=== PATIENT | female | born 1945 | race Caucasian/White ===

== ENCOUNTER 2022-12-28 19:45 | Inpatient (IN) | payer OTHER ==
[~2022-12-28] VITALS: Ht 154.9 cm; Wt 73.5 kg
[2022-12-28 19:50] VITALS: BP_SYST 137
--- NOTE | 2022-12-28 19:50 | NUR ---
Patient triaged and placed in [facility] . VSS and patient appears in no acute distress at this time. Accompanied by EMS, awaiting available bed, and MD notified of need for MSE.
--- NOTE | 2022-12-28 20:21 | NUR ---
ER Dr.Dela Estevez examining patient.
[2022-12-28] MEDS ORDERED: DEXTROSE 50% JECT 50 ML DISP.SYRIN ONE (20:37)
[2022-12-28] MEDS ORDERED: DEXTROSE 50% JECT 50 ML DISP.SYRIN IVP ONE ×3 (20:45→23:00)
[2022-12-28 20:46] LABS: BASOPHILS # (AUTO) 0.1 K/uL (0.0-0.2); BASOPHILS % (AUTO) 0.9 % (0.0-2.0); EOSINOPHILS # (AUTO) 0.2 K/uL (0.0-0.4); EOSINOPHILS % (AUTO) 2.7 % (0.0-4.0); HEMATOCRIT 36.3 % (36-48); HEMOGLOBIN 11.9 g/dL (12.0-16.0); LYMPHOCYTES # (AUTO) 1.4 K/uL (1.0-5.5); LYMPHOCYTES % (AUTO) 16.9 % (20.5-51.5); MEAN CORPUSCULAR HEMOGLOBIN 29 pg (27-31); MEAN CORPUSCULAR HGB CONC 33 % (32-36); MEAN CORPUSCULAR VOLUME 90 fL (79.0-98.0); MONOCYTES # (AUTO) 0.6 K/uL (0.0-1.0); MONOCYTES % (AUTO) 7.5 % (1.7-9.3); NEUTROPHILS # (AUTO) 6.2 K/uL (1.8-7.7); PLATELET COUNT (AUTO) 258 K/uL (130-430); RED BLOOD CELL COUNT(AUTO) 4.06 MIL/uL (4.2-6.2); RED CELL DISTRIBUTION WIDTH 15.2 % (9.0-15.0); WHITE BLOOD COUNT (AUTO) 8.5 K/uL (4.8-10.8)
[2022-12-28 21:03] LABS: ANION GAP 11 (5-15); CALCIUM 9.3 mg/dL (8.4-11.0); CHLORIDE 107 mmol/L (98-107); CREATININE 1.02 mg/dL (0.55-1.30); UREA NITROGEN, BLOOD 19 mg/dL (8-21)
[2022-12-28 21:10] LABS: ALANINE AMINOTRANSFERASE 16 U/L (12-78); ALBUMIN 3.6 g/dL (3.4-4.8); ASPARTATE AMINOTRANSFERASE 10 U/L (10-37); TOTAL BILIRUBIN 0.2 mg/dL (0.0-1.0)
[2022-12-28 21:32] LABS: GLUCOSE 30 mg/dL (70-99)
--- NOTE | 2022-12-28 21:50 | NUR ---
Placed in room 6 . Placed on child monitor, blood pressure machine and pulse oximeter. To gown for exam. Side rails up. Report given to MANDEEP BENITEZ(TRAVEL).
[2022-12-28] MEDS ORDERED: D10W 1,000 ML IV SCH (22:45)
[2022-12-28] MEDS ORDERED: PARO30TA62 PO (22:59)
[2022-12-28] MEDS ORDERED: OMEP20CA15 PO (22:59)
[2022-12-28] MEDS ORDERED: ATOR40TA68 PO (22:59)
[2022-12-28] MEDS ORDERED: METF-1069 PO (22:59)
[2022-12-28] MEDS ORDERED: GLIP10TA21 PO (22:59)
[2022-12-28] MEDS ORDERED: LEVO25TA7 PO (22:59)
[2022-12-28] MEDS ORDERED: ASA81 PO (22:59)
[2022-12-28] MEDS ORDERED: SER100 PO (22:59)
[2022-12-28] MEDS ORDERED: POTA-197 PO (22:59)
--- NOTE | 2022-12-28 22:59 | NUR ---
Medication reconciliation completed with information provided by [facility]. Any prior medication reconciliation on file was reviewed and corrected.
--- NOTE | 2022-12-28 23:00 | NUR ---
Admit bed requested Patient will be admitted to care of . Admitted to TELE unit. Diagnosis HYPOGLYCEMIA Inpatient (Yes or No) YES Observation (Yes or No) NO Orientation concerns or request close to nursing station (Yes or No) NO Covid Status PENDING On vent or bipap NO Isolation requirements NO Needs a sitter NO From Home (Yes or if No enter name of facility) [facility] Requires Dialysis (Yes or No) NO Med Rec Completed (Yes of No) YES
--- NOTE | 2022-12-28 23:35 | NUR ---
Patient will be admitted to care of Dr Pierson. Admitted to Tele unit. Will go to room 118B. Belongings list completed. Complete and up to date summary report printed. SBAR report to be given at bedside with opportunity for questions.
--- NOTE | 2022-12-28 23:36 | NUR ---
Transfer to Tele via ACLS protocol. Licensed nurse present. IV present no signs or symptoms of infiltration.
[2022-12-29 00:29] LABS: BILIRUBIN,URINE NEGATIVE (NEGATIVE); BLOOD, URINE NEGATIVE (NEGATIVE); COLOR,URINE YELLOW (YELLOW); GLUCOSE,URINE 1+ (NEGATIVE); KETONES,URINE NEGATIVE (NEGATIVE); NITRITE, URINE POSITIVE (NEGATIVE); PH,URINE 5.5 (5.0-8.0); PROTEIN URINE NEGATIVE (NEGATIVE); UROBILINOGEN,URINE 0.2 (0.2-1.0)
[2022-12-29 00:45] LABS: CLARITY/URINE SLIGHTLY CLOUDY (CLEAR); LEUKOCYTE ESTERASE ,URINE TRACE (NEGATIVE)
[2022-12-29] MEDS ORDERED: DEXTROSE 50% JECT 50 ML DISP.SYRIN IVP PRN (00:45)
[2022-12-29] MEDS ORDERED: GLUCOSE (DEXTROSE) ORAL GEL -Adults PO PRN (00:45)
[2022-12-29] MEDS ORDERED: D5W 1,000 ML IV PRN (00:45)
[2022-12-29 00:46] LABS: BACTERIA,URINE MANY /HPF (None Seen); RBC,URINE 0-3 /HPF (0-3)
[2022-12-29] MEDS: POTASSIUM CHLORIDE 20 MEQ TAB.PRT.SR PO SCH ×3 (00:50→21:10)
[2022-12-29] MEDS ORDERED: DEXTROSE 50% JECT 50 ML DISP.SYRIN ONE (00:54)
[2022-12-29 00:55] VITALS: BP_SYST 127
[2022-12-29 06:10] LABS: BASOPHILS # (AUTO) 0.1 K/uL (0.0-0.2); BASOPHILS % (AUTO) 0.8 % (0.0-2.0); EOSINOPHILS # (AUTO) 0.3 K/uL (0.0-0.4); EOSINOPHILS % (AUTO) 3.8 % (0.0-4.0); HEMATOCRIT 34.6 % (36-48); HEMOGLOBIN 11.3 g/dL (12.0-16.0); LYMPHOCYTES # (AUTO) 1.4 K/uL (1.0-5.5); LYMPHOCYTES % (AUTO) 18.1 % (20.5-51.5); MEAN CORPUSCULAR HEMOGLOBIN 29 pg (27-31); MEAN CORPUSCULAR HGB CONC 33 % (32-36); MEAN CORPUSCULAR VOLUME 89 fL (79.0-98.0); MONOCYTES # (AUTO) 0.7 K/uL (0.0-1.0); MONOCYTES % (AUTO) 8.5 % (1.7-9.3); NEUTROPHILS # (AUTO) 5.5 K/uL (1.8-7.7); NEUTROPHILS % (AUTO) 68.8 % (40.0-70.0); PLATELET COUNT (AUTO) 235 K/uL (130-430); RED BLOOD CELL COUNT(AUTO) 3.87 MIL/uL (4.2-6.2); RED CELL DISTRIBUTION WIDTH 15.5 % (9.0-15.0); WHITE BLOOD COUNT (AUTO) 7.9 K/uL (4.8-10.8)
--- NOTE | 2022-12-29 06:51 | NUR ---
Patient admitted from ER DX hypoglycemia, ER nurse reported BS 120 at approx 2300. This nurse reassessed BS @ 0015 and the BS was 21, 240 mL of apple juice given and D50 IVP @ 0030, Patient also was started on D10 @ 100 mL/ hr IVF, reassessed BS 213. New order to check BS Q2hr. Patient BS @0210 was 96, @ 0415 BS 76, @ 0545 BS 63. Patient was given 240 mL apple juice and 15 gm gel [id number], reassessed @0605 BS 53, reassessed again at 0622 BS 70. Charge Nurse Viry was notified, this nurse instructed to hold off on giving the D50 IVP. Charge Nurse called MD to notify of BS results.
[2022-12-29 07:38] LABS: ALANINE AMINOTRANSFERASE 17 U/L (12-78); ALBUMIN 3.2 g/dL (3.4-4.8); ANION GAP 12 (5-15); ASPARTATE AMINOTRANSFERASE 11 U/L (10-37); CALCIUM 8.9 mg/dL (8.4-11.0); CHLORIDE 105 mmol/L (98-107); CREATININE 0.88 mg/dL (0.55-1.30); FREE T4 (FREE THYROXINE) 0.7 ng/dL (0.6-1.6); GLUCOSE 60 mg/dL (70-99); THYROID STIMULATING HORMONE 3.05 uIu/mL (0.34-4.82); TOTAL BILIRUBIN 0.3 mg/dL (0.0-1.0); UREA NITROGEN, BLOOD 16 mg/dL (8-21)
[2022-12-29 08:00] VITALS: BP_SYST 117
[2022-12-29] MEDS: PARoxetine HCL 20 MG TABLET PO SCH (09:40)
[2022-12-29] MEDS: ASPIRIN 81 MG TABLET(ECOTRIN) PO SCH (09:41)
[2022-12-29] MEDS: QUEtiapine FUMARATE 25 MG TABLET PO SCH ×2 (09:41→15:24)
[2022-12-29] MEDS: ATORVASTATIN 20 MG TABLET PO SCH (09:41)
[2022-12-29] MEDS: cefTRIAXone 1 GM in D5W 50 ML IV SCH (10:20)
--- NOTE | 2022-12-29 11:20 | NUR ---
Shift Summary: patient is AAOX3. vitals are stable. patient and family updated on plan of care for the shift. patient and family state they have no questions or concerns at this time. patient and family educated that patient needs to use call light if patient needs any assistance due to patient being high risk for falls. patient and family state they understand. will continue to monitor. call light within reach, bed set to low, locked, and alarm on. Addendum: 12/29/22 at 1757 by [facility], ELI RN ok to change finger stick order from q2h to q4h per Dr. Pierson. continuous fluid parameters changed and placed per Dr. Pierson. patient becoming more confused and agitated. patient re-educated on importance of using call light if patient needs assistance. patient also educated on importance of keeping IV on due to patient needing fluids to stabilize her glucose levels and that any delay of continuous fluids could possibly decrease her glucose levels. will continue to monitor patient. call light within reach, bed set to low, locked, and alarm on.
[2022-12-29 11:59] VITALS: BP_SYST 113
[2022-12-29 12:03] LABS: BILIRUBIN,URINE NEGATIVE (NEGATIVE); BLOOD, URINE 1+ (NEGATIVE); COLOR,URINE YELLOW (YELLOW); GLUCOSE,URINE NEGATIVE (NEGATIVE); KETONES,URINE NEGATIVE (NEGATIVE); LEUKOCYTE ESTERASE ,URINE TRACE (NEGATIVE); NITRITE, URINE NEGATIVE (NEGATIVE); PH,URINE 5.5 (5.0-8.0); PROTEIN URINE NEGATIVE (NEGATIVE); UROBILINOGEN,URINE 0.2 (0.2-1.0)
[2022-12-29 12:32] LABS: CLARITY/URINE SLIGHTLY HAZY (CLEAR)
[2022-12-29 14:03] LABS: BACTERIA,URINE FEW /HPF (None Seen)
[2022-12-29] MEDS: D10W 1,000 ML IV SCH ×2 (14:19→22:53)
[2022-12-29 16:45] VITALS: BP_SYST 115
[2022-12-29 20:00] VITALS: BP_SYST 109
[2022-12-29] MEDS: QUEtiapine FUMARATE 100 MG TABLET PO SCH (22:51)
[2022-12-30] VITALS: BP_SYST 118
[2022-12-30 08:00] VITALS: BP_SYST 135
[2022-12-30] MEDS: cefTRIAXone 1 GM in D5W 50 ML IV SCH (08:27)
[2022-12-30] MEDS: QUEtiapine FUMARATE 25 MG TABLET PO SCH ×2 (08:27→14:38)
[2022-12-30] MEDS: ATORVASTATIN 20 MG TABLET PO SCH (08:27)
[2022-12-30] MEDS: ASPIRIN 81 MG TABLET(ECOTRIN) PO SCH (08:28)
[2022-12-30] MEDS: POTASSIUM CHLORIDE 20 MEQ TAB.PRT.SR PO SCH ×2 (08:28→20:46)
[2022-12-30] MEDS: PARoxetine HCL 20 MG TABLET PO SCH (08:28)
[2022-12-30] MEDS: D10W 1,000 ML IV SCH ×2 (08:33→19:30)
--- NOTE | 2022-12-30 10:23 | NUR ---
Shift Summary: patient is AAOX3. vitals are stable. patient and family updated on plan of care for the day. patient and family state they have no questions or concerns at this time. patient and family educated on importance of using call light if patient needs staff assistance due to patient being high risk for falls. patient and family state they understand. call light within reach, bed set to low, locked and alarm on. [id number] started. Addendum: 12/30/22 at 1803 by [facility], RN RN patient glucose levels above 200. d10 continous fluids turned off per parameter order approx 1200. patients glucose sustaining in the 100. will continue to monitor. patient continues to attempt to get out of bed without calling staff. patient re-educated on importance of using call light and waiting for staff to assist. education unsuccessful. patients sister updated on patients non-compliance and plan of care of treatment. patients sister aware and understands. will endorse to oncoming nurse. call light within reach, bed set to low, locked, and alarm on.
[2022-12-30] MEDS ORDERED: GLIP10TA11 PO (11:00)
[2022-12-30 12:00] VITALS: BP_SYST 110
--- NOTE | 2022-12-30 13:44 | NUR ---
CONSULTATION PAGED REASON FOR CONSULTATION:HYPOGLYCEMIA WAS CONSULT CALLED?Y PERSON WHO WAS NOTIFIED:VOICEMAIL LEFT CONSULTING PHYSICIAN:BALDO LEO SHIRRING MACHINE OPERATOR AUTOMATIC SPECIALTY:ENDO SHIRRING MACHINE OPERATOR AUTOMATIC PHONE NUMBER:[phone] REQUESTING PHYSICIAN:STACI PALENCIA
[2022-12-30 16:00] VITALS: BP_SYST 129
--- NOTE | 2022-12-30 17:11 | NUR ---
Order for Home Health order faxed to [facility]-will follow up for home health agency
--- NOTE | 2022-12-30 17:37 | NUR ---
Dietitian Recommendations * Continue Mechanical Soft & 45 gm CCHO diet * Encourage good PO intakes during meal times * Snacks BID LP, MS, RD Please refer to Nutrition Assessment for details. Addendum: 12/30/22 at 1737 by Jessy DIANE Amended: Links added.
[2022-12-30 20:00] VITALS: BP_SYST 135
[2022-12-30] MEDS: QUEtiapine FUMARATE 100 MG TABLET PO SCH (20:46)
[2022-12-31] VITALS: BP_SYST 110
[2022-12-31] MEDS: D10W 1,000 ML IV SCH ×2 (05:30→15:30)
--- NOTE | 2022-12-31 06:29 | NUR ---
PATIENT IN BED RESTING, CONFUSED AT BEGINNING OF SHIFT AND TRYING MULTIPLE TIMES TO GET OOB WITHOUT ASSIST. PATIENT MOVED TO BED 132 C TO BE CLOSER TO NURSES STATION. PATIENT IS A HIGH FALL RISK. PATIENT VSS, BS MAINTAINED ABOVE 100, CONTINUED TO HOLD THE D10 PER MD ORDER. PATIENT C/O NO PAIN DURING THIS SHIFT. PATIENT RESTED MOST OF THE SHIFT AFTER BEING TRANSFERRED TO ROOM 132C. PATIENT DOES NOT HAVE DC ORDERS AT THIS TIME BUT DC PLANNING, PATIENT TO TRANSFER BACK TO BOARDING CARE.
[2022-12-31 08:00] VITALS: BP_SYST 118
[2022-12-31 08:22] LABS: ANION GAP 9 (5-15); CALCIUM 9.3 mg/dL (8.4-11.0); CHLORIDE 105 mmol/L (98-107); CREATININE 0.76 mg/dL (0.55-1.30); GLUCOSE 127 mg/dL (70-99); UREA NITROGEN, BLOOD 16 mg/dL (8-21)
[2022-12-31] MEDS: cefTRIAXone 1 GM in D5W 50 ML IV SCH (08:37)
[2022-12-31] MEDS: QUEtiapine FUMARATE 25 MG TABLET PO SCH ×2 (08:37→15:23)
[2022-12-31] MEDS: ASPIRIN 81 MG TABLET(ECOTRIN) PO SCH (08:37)
[2022-12-31 08:38] LABS: BASOPHILS # (AUTO) 0.1 K/uL (0.0-0.2); BASOPHILS % (AUTO) 1.3 % (0.0-2.0); EOSINOPHILS # (AUTO) 0.3 K/uL (0.0-0.4); EOSINOPHILS % (AUTO) 5.4 % (0.0-4.0); HEMATOCRIT 38.1 % (36-48); HEMOGLOBIN 12.3 g/dL (12.0-16.0); LYMPHOCYTES # (AUTO) 1.2 K/uL (1.0-5.5); MEAN CORPUSCULAR HEMOGLOBIN 29 pg (27-31); MEAN CORPUSCULAR HGB CONC 32 % (32-36); MEAN CORPUSCULAR VOLUME 90 fL (79.0-98.0); MONOCYTES # (AUTO) 0.5 K/uL (0.0-1.0); MONOCYTES % (AUTO) 9.3 % (1.7-9.3); NEUTROPHILS # (AUTO) 3.6 K/uL (1.8-7.7); PLATELET COUNT (AUTO) 232 K/uL (130-430); RED BLOOD CELL COUNT(AUTO) 4.25 MIL/uL (4.2-6.2); RED CELL DISTRIBUTION WIDTH 15.4 % (9.0-15.0); WHITE BLOOD COUNT (AUTO) 5.7 K/uL (4.8-10.8)
[2022-12-31] MEDS: ATORVASTATIN 20 MG TABLET PO SCH (08:38)
[2022-12-31] MEDS: PARoxetine HCL 20 MG TABLET PO SCH (08:38)
[2022-12-31] MEDS: POTASSIUM CHLORIDE 20 MEQ TAB.PRT.SR PO SCH ×2 (08:38→21:20)
--- NOTE | 2022-12-31 09:00 | NUR ---
ATTENDING MD DR DAILEY WAS PAGED, RE; AN OK TO RESUME FEEDING. SPOKE TO CESIA.
--- NOTE | 2022-12-31 11:42 | NUR ---
Shift Summary: patient is AAOX2-3. vitals are stable. patient updated on plan of care for shift. patient states she has no questions or concerns at this time. patient educated on importance of using call light if patient needs to ambulate due to patient being high fall risk. patient states she understands. will continue to monitor. call light within reach, bed set to low, locked, and bed alarm on.
[2022-12-31 12:00] VITALS: BP_SYST 123
[2022-12-31 16:00] VITALS: BP_SYST 129
--- NOTE | 2022-12-31 20:00 | NUR ---
Opening note- met pt at bedside. pt awake, alert and oriented x 1. pt ate dinner about 75%. No s/sx of any distress. V/s stable afebrile. Tele- SR. Pt used BSC with moderate assist.
[2022-12-31 20:05] VITALS: BP_SYST 146
[2022-12-31] MEDS: QUEtiapine FUMARATE 100 MG TABLET PO SCH (21:20)
[2023-01-01 01:04] VITALS: BP_SYST 100
--- NOTE | 2023-01-01 02:51 | NUR ---
Pt's sleeping w/o any distress. Cont fall precaution.
--- NOTE | 2023-01-01 06:11 | NUR ---
Closing note- pt's sleeping. BS check every 4hr- last blood sugar was 120. No s/sx of any distress. v/s stable afebrile. Tele-SR w/o ectopy.
[2023-01-01 08:00] VITALS: BP_SYST 126
--- NOTE | 2023-01-01 08:25 | NUR ---
OPENING NOTES: PT IN BED WITH EYES CLOSED. NO S/S OF DISTRESS OR PAIN REPORTED. BREATHING IS EVEN AND UNLABORED ON RA. ALL NEEDS MET AT THIS TIME, SAFETY CHECKS MADE AND CALL LIGHT WITHIN REACH.
[2023-01-01] MEDS: ASPIRIN 81 MG TABLET(ECOTRIN) PO SCH (09:47)
[2023-01-01] MEDS: QUEtiapine FUMARATE 25 MG TABLET PO SCH (09:48)
[2023-01-01] MEDS: POTASSIUM CHLORIDE 20 MEQ TAB.PRT.SR PO SCH (09:49)
[2023-01-01] MEDS: ATORVASTATIN 20 MG TABLET PO SCH (09:50)
[2023-01-01] MEDS: PARoxetine HCL 20 MG TABLET PO SCH (09:51)
--- NOTE | 2023-01-01 11:34 | NUR ---
ROUNDS: PT IV ON L FA WAS INFILTRATED. STARTED NEW IV ON R FA 22G. PT IS IN BED A/O X4. NO S/S OF DISTRESS OR PAIN REPORTED. ALL NEEDS MET AT THIS TIME, SAFETY CHECKS MADE AND CALL LIGHT WITHIN REACH.
--- NOTE | 2023-01-01 11:40 | NUR ---
MD: DR VALENTE BEDSIDE. CHECKED PT BLOOD SUGAR. 121.
[2023-01-01 12:19] VITALS: BP_SYST 105
[2023-01-01 12:22] VITALS: BP_SYST 100
--- NOTE | 2023-01-01 13:29 | NUR ---
CM NOTES: SPOKE WITH BEDSIDE NURSE GLEN MICHEL TO DC TO [facility] TODAY, DIAMANTE DONATO- PT SISTER TO PROGRAMMER OPERATOR NUMERICAL CONTROL PATIENT. PER JACQUES, DOUG GARCIA IS AWARE. SPOKE WITH DOUG CONLEY, , VERIFIED FAC IS AWARE OF THE DC PLAN TODAY. CM TO F/UP WITH [facility] RE: REFERRALS. HIPAA VERIFIED
--- NOTE | 2023-01-02 12:31 | NUR ---
CM: per carly Borja : to send referral to [facility] per list. Faxed : referral to [facility] attn Toro # [phone], tel [phone].
== END 2023-01-01 14:15 | disposition home health service (06) | DRG 637 ==
LOC: SED 19:45 → STU 22:40
PROVIDERS: ADMIT Internal Medicine; ATTEND Internal Medicine
DX: E11.649 Type 2 diabetes mellitus with hypoglycemia without coma (principal); G93.41 Metabolic encephalopathy; E44.1 Mild protein-calorie malnutrition; E78.00 Pure hypercholesterolemia, unspecified; E87.6 Hypokalemia; Z20.822 Contact with and (suspected) exposure to COVID-19; F29 Unspecified psychosis not due to a substance or known physiological condition; E66.9 Obesity, unspecified; Z68.30 Body mass index [BMI] 30.0-30.9, adult; Z88.5 Allergy status to narcotic agent; Z79.899 Other long term (current) drug therapy; Z79.84 Long term (current) use of oral hypoglycemic drugs
CPT/HCPCS: 36415; 80048; 80053; 81000; 82962; 83735; 84436; 84439; 84443; 84484; 85025; 87086; 96374; 99291; 99292; G0378; J0696; J7060